=== PATIENT | female | born 2000 | race Caucasian/White ===

== ENCOUNTER 2020-12-31 13:49 | Emergency (ER) | payer OTHER ==
[~2020-12-31 13:49] MED LIST: ZOFRAN8 MG PO
[2020-12-31] MEDS ORDERED: NAPROXEN500 MG PO (14:59)
== END 2020-12-31 15:10 | disposition home or self-care (01) ==
LOC: FER 13:49
DX: M77.8 Other enthesopathies, not elsewhere classified (principal); M25.511 Pain in right shoulder; Z88.0 Allergy status to penicillin
CPT/HCPCS: 73070; 96372; J1100; J1885